=== PATIENT | female | born 1960 | race Caucasian/White ===

== ENCOUNTER 2018-07-11 07:39 | Emergency (ER) | payer BC ==
[2018-07-11 07:52] VITALS: BP 144/102
--- NOTE | 2018-07-11 08:42 | UC ---
Shoulder Pain HPI - HPI Summary HPI Summary: 57-year-old woman comes in with a chief complaint of right shoulder pain. She woke with the pain 2 days ago. No known specific trauma. Pain hurts right in the shoulder. There is minimal radiation of pain. Pain is worse with attempted movement of the shoulder with putting any weight on the shoulder. Patient has no complaint of weakness or numbness however because of the pain she is got decreased range of motion of the right shoulder. No complaint of any neck pain. - History of Current Complaint Chief Complaint: UCUpperExtremity Stated Complaint: RT ARM PAIN Time Seen by Provider: 07/11/18 08:41 Pain Intensity: 9 - Allergies/Home Medications Allergies/Adverse Reactions: Allergies Allergy/AdvReac Type Severity Reaction Status Date / Time ampicillin Allergy Rash Verified 07/11/18 07:48 sulfamethoxazole Allergy Rash Verified 07/11/18 07:48 [From ] trimethoprim [From ] Allergy Rash Verified 07/11/18 07:48 Home Medications: Home Medications Ibuprofen TAB* [Advil TAB*] 400 mg PO Q6H PRN 07/11/18 [History Confirmed ] PMH/Surg Hx/FS Hx/Imm Hx Previously Healthy: Yes - Surgical History Surgical History: None - Family History Known Family History: Positive: Non-Contributory - Social History Alcohol Use: None Substance Use Type: None Smoking Status (MU): Never Smoked Tobacco Review of Systems All Other Systems Reviewed And Are Negative: Yes Constitutional: Positive: Negative Skin: Positive: Negative Eyes: Positive: Negative ENT: Positive: Negative Respiratory: Positive: Negative Cardiovascular: Positive: Negative Gastrointestinal: Positive: Negative Motor: Positive: Decreased ROM Neurovascular: Positive: Negative Musculoskeletal: Positive: Decreased ROM, Other: - see hpi Neurological: Positive: Negative Psychological: Positive: Negative Is Patient Immunocompromised?: No Physical Exam Triage Information Reviewed: Yes Appearance: Well-Appearing, Well-Nourished, Pain Distress - mild with rom rt shoulder Vital Signs: Initial Vital Signs Temp 97.5 F 07/11/18 07:47 Pulse 89 07/11/18 07:47 Resp 18 07/11/18 07:47 BP 144/102 07/11/18 07:47 Pulse Ox 98 07/11/18 07:47 Vital Signs Reviewed: Yes Eye Exam: Normal Eyes: Positive: Conjunctiva Clear Neck: Positive: Supple, Nontender Respiratory: Positive: No respiratory distress Musculoskeletal: Positive: Other: - Normal bilateral radial pulses. No sensation deficit. Normal capillary refill. Fingers wrists bilaterally have full range of motion. Left elbow and shoulder have normal range of motion. Patient reports when she attempts to fully flex her right elbow it gets her pain in the right shoulder. Due to the pain with movement and of the right shoulder the patient declines further range of motion in the right shoulder. Right shoulder is tender to palpation in the joint space. Neurological Exam: Normal Neurological: Positive: Alert, Muscle Tone Normal Psychological Exam: Normal Psychological: Positive: Age Appropriate Behavior Skin Exam: Normal Shoulder Course/Dx - Course Course Of Treatment: Patient Name: SHILOH EMERY Medical Record#: [id number] Ordering Physician: Monty Henson MD Acct.#: [id number] : 1960 Age: 57 Sex: F Location: [facility] Exam Date: 07/11/18752 ADM Status: REG ER Order Information: SHOULDER RIGHT 2+ VWS Accession Number: [id number] CPT: 90072 Indication: Right shoulder pain. 4 views of the right shoulder demonstrates AC joint arthritis. No other bone or joint abnormality is noted. IMPRESSION: AC joint arthritis without fracture. <Electronically signed by Rahel Bonilla MD in OV> 07/11/18 0837 I discussed the x-ray report with the patient. Patient started taking ibuprofen which she will continue. We discussed range of motion exercises. I prescribed her hydrocodone for her pain. For work no use of the right arm until cleared by medical provider. Patient will be following up with either orthopedics or sports medicine. - Differential Dx/Diagnosis Provider Diagnosis: Right shoulder pain Discharge - Sign-Out/Discharge Documenting (check all that apply): Patient Departure All imaging exams completed and their final reports reviewed: Yes - Discharge Plan Condition: Stable Disposition: HOME Prescriptions: HYDROcodone/ACETAMIN 5-325 MG* [[place] 5-325 TAB*] 1 tab PO Q4H PRN #20 tab MDD 6 PRN Reason: Pain Patient Education Materials: Shoulder Pain (ED) Forms: *Work Release Referrals: Rex Barry MD [Medical Doctor] - [facility] [Provider Group] Additional Instructions: FOLLOW UP WITH ORTHOPEDICS OR SPORTS MEDICINE. GET REEVALUATED SOONER IF YOUR CONDITION WORSENS OR ANY QUESTIONS OR CONCERNS. - Billing Disposition and Condition Condition: STABLE Disposition: Home
== END 2018-07-11 09:02 | disposition home or self-care (01) ==
LOC: UCCORT 07:39
DX: M25.511 Pain in right shoulder (principal); M19.011 Primary osteoarthritis, right shoulder; Z88.1 Allergy status to other antibiotic agents; Z88.2 Allergy status to sulfonamides; Z88.8 Allergy status to other drugs, medicaments and biological substances
CPT/HCPCS: 99202; G0463